=== PATIENT | male | born 1980 | race Caucasian/White ===

== ENCOUNTER 2022-07-14 15:29 | Emergency (ER) | payer BC, OTHER ==
[~2022-07-14] VITALS: Ht 177.8 cm; Wt 84.8 kg
[~2022-07-14 15:29] MED LIST: ANTABUSE250 MG PO; IRON325 MG PO; NORCO 5-325 TA1 EACH PO; PRENATABS RX T1 EACH PO; TRAZODONE HCL50 MG PO
[2022-07-14] MEDS ORDERED: NAPROSYN500 MG PO (16:18)
[2022-07-14] MEDS ORDERED: VISTARIL25 MG PO (16:18)
--- NOTE | 2022-07-14 21:55 | EKG ---
[facility] [address] [facility] [place], [place] [address] Signed Normal sinus rhythm Normal ECG No previous ECGs available Confirmed by JAVON MARTIN MD ([id number]) on 07/14/2022 9:55:33 PM Electronically Signed By: JAVON MARTIN MD 07/14/225 PATIENT NAME: AMBREEN MARLOW Electrocardiogram DATE OF : 76 PHYSICIAN: JAVON MARTIN MD REPORT #: [id number] REPORT IS CONFIDENTIAL AND NOT TO BE RELEASED WITHOUT AUTHORIZATION
== END 2022-07-14 16:54 | disposition home or self-care (01) ==
LOC: ED 15:29
DX: R09.1 Pleurisy (principal); G47.00 Insomnia, unspecified; Z20.822 Contact with and (suspected) exposure to COVID-19
CPT/HCPCS: 36415; 71045; 80053; 83735; 84484; 85025; 85060; 93005; 93010; 99285-25; C9803

== ENCOUNTER 2023-06-27 12:41 | Observation (INO) | payer BC, OTHER ==
[~2023-06-27] VITALS: Ht 177.8 cm; Wt 87.0 kg
[~2023-06-27 12:41] MED LIST changes: +NAPROSYN500 MG PO; +VISTARIL25 MG PO
[2023-06-27 15:18] LABS: BASOPHILS 0.1 % (0-2); EOSINOPHILS 0.4 % (0-6); HEMATOCRIT 38.4 % (35.0-50.0); HEMOGLOBIN 12.3 g/dL (12.0-18.0); MCH 19.4 (27-36); MCHC 32.1 g/dl (30-36); MCV 60.5 fl (81-99); MONOCYTES 4.4 % (0-12); NEUTROPHILS 91.1 % (39-80); PLATELET COUNT 305 K/uL (140-440); RBC 6.36 M/ul (4.3-5.7); RDW 16.3 (10.5-15.0)
[2023-06-27 15:33] LABS: ALBUMIN 4.5 g/dL (3.4-5.0); ALBUMIN/GLOBULIN RATIO 1.13 (1.1-2.4); BILIRUBIN, TOTAL 0.6 ng/dL (0.2-1.0); BUN/CREATININE RATIO 6.18 (6.0-28.6); CALCIUM 9.3 mg/dL (8.5-10.1); CREATININE, SERUM 0.97 mg/dL (0.70-1.30); PROTEIN, TOTAL 8.5 g/dL (6.4-8.2)
[2023-06-27 16:31] LABS: BILIRUBIN, URINE NEGATIVE (negative); BLOOD/HGB, URINE TRACE-I (Negative); KETONE, URINE NEGATIVE (Negative); LEUK ESTERASE, URINE NEGATIVE (negative); NITRITE, URINE NEGATIVE (negative)
[2023-06-27 16:38] LABS: BACTERIA, URINE RARE /hpf (negative); CASTS, URINE NONE SEEN \\lpf; COLLECTION TYPE, URINE CLEAN CATCH; CRYSTALS, URINE AMORPHOUS PHOSPH 4+ (0-1+); EPITHELIAL CELLS, URINE 0 /lpf (0-1+); RED BLOOD CELLS, URINE 0-1 /hpf (0-5); REFLEX CULTURE, URINE No (No); WHITE BLOOD CELLS, URINE 0-1 /HPF (0-5)
[2023-06-27 19:35] LABS: INFLUENZA B NAA NEGATIVE (NEGATIVE); RESPIRATORY SYNCYTIAL VIR NAA NEGATIVE (NEGATIVE)
[2023-06-27 19:58] VITALS: BP 155/100
[2023-06-28] VITALS (8 sets, daily range): BP systolic 123–147; BP diastolic 64–94
[2023-06-28 05:38] LABS: BASOPHILS 0.5 % (0-2); EOSINOPHILS 0.6 % (0-6); HEMATOCRIT 33.9 % (35.0-50.0); LYMPHOCYTES 12.2 % (24-44); MCH 19.6 (27-36); MCHC 32.3 g/dl (30-36); MCV 60.7 fl (81-99); NEUTROPHILS 76.7 % (39-80); PLATELET COUNT 270 K/uL (140-440); RBC 5.58 M/ul (4.3-5.7); RDW 16.2 (10.5-15.0)
[2023-06-28 06:02] LABS: ALBUMIN 3.4 g/dL (3.4-5.0); ANION GAP 11.7 (7-21); BILIRUBIN, TOTAL 0.7 ng/dL (0.2-1.0); BUN/CREATININE RATIO 8.79 (6.0-28.6); CALCIUM 8.4 mg/dL (8.5-10.1); CREATININE, SERUM 0.91 mg/dL (0.70-1.30); POTASSIUM 3.7 mmol/L (3.5-5.1); PROTEIN, TOTAL 6.8 g/dL (6.4-8.2)
[2023-06-28] MEDS ORDERED: NAPROSYN500 MG PO (10:14)
[2023-06-28] MEDS ORDERED: ZZZQUIL25 MG PO (12:48)
[2023-06-29 03:09] VITALS: BP 128/84
[2023-06-29 05:30] LABS: BASOPHILS 0.9 % (0-2); HEMATOCRIT 31.5 % (35.0-50.0); LYMPHOCYTES 7.5 % (24-44); MCH 19.4 (27-36); MCHC 31.8 g/dl (30-36); MCV 60.9 fl (81-99); NEUTROPHILS 85.6 % (39-80); PLATELET COUNT 261 K/uL (140-440); RBC 5.17 M/ul (4.3-5.7); RDW 16.6 (10.5-15.0)
[2023-06-29 05:53] LABS: ALBUMIN 3.1 g/dL (3.4-5.0); ALBUMIN/GLOBULIN RATIO 0.89 (1.1-2.4); ANION GAP 13.2 (7-21); BILIRUBIN, TOTAL 0.4 ng/dL (0.2-1.0); BUN/CREATININE RATIO 8.51 (6.0-28.6); CALCIUM 8.2 mg/dL (8.5-10.1); CREATININE, SERUM 0.94 mg/dL (0.70-1.30); POTASSIUM 4.2 mmol/L (3.5-5.1); PROTEIN, TOTAL 6.6 g/dL (6.4-8.2)
[2023-06-29 06:12] VITALS: BP 138/87
[2023-06-29 09:27] VITALS: BP 127/80
[2023-06-29] MEDS ORDERED: OXYCODONE HCL5 MG PO (14:26)
[2023-06-29] MEDS ORDERED: MOTRIN IB200 MG PO (14:26)
[2023-06-29] MEDS ORDERED: ACETAMINOPHEN500 MG PO (14:26)
--- NOTE | 2023-06-30 10:51 | HP ---
[facility] [address] [facility] [place], [place] [address] Signed ADMISSION DATE: 06/27/2023 REASON FOR ADMISSION: Acute calculous cholecystitis. HISTORY OF PRESENT ILLNESS: This 42-year-old man works for the [employer] and is accompanied by his daughter and niece. He has a girlfriend, who is not here. The patient began having pain early this morning and thought he would "tough it out" until noon, at which point he was quite uncomfortable. He presented to the emergency room at approximately 12:49 p.m. He was evaluated by Dr. Garcia and was found to have tenderness in the right upper abdomen. His liver enzymes were normal and with less suspicion for possible biliary disease. A CT scan was performed. This showed marked inflammation and edema of the gallbladder itself. No radiopaque stones were noted, however, my review does show high probability of at least one stone in the neck of the gallbladder. The liver was normal as noted, as were both kidneys and the pancreas. His laboratory studies showed normal liver enzymes as previously noted. White count of 13.7, hematocrit of 38.4, and platelets of 305,000. Creatinine was normal at 0.97. Bilirubin was 0.6. Serology is negative for COVID disease or other respiratory viruses. Urinalysis was performed, which was essentially normal. The patient has no prior history of abdominal surgery and has no particular chronic medical problems. His only medications include Vistaril and Naprosyn. SOCIAL HISTORY: He works with [employer] and has worked in many capacities, including facilities management and so forth. He is accompanied by his daughter and his niece as previously noted. REVIEW OF SYSTEMS: He denies any shortness of breath or chest pain. He has had no dysphagia, dysuria. He denies any hematemesis or blood per rectum. PHYSICAL EXAMINATION: GENERAL: Pleasant man, who does not look systemically toxic. VITAL SIGNS: Current vital signs show temperature 97.8, pulse 101, blood pressure 155/100, O2 saturation 98% on room air. NECK: Shows no thyromegaly or cervical adenopathy. Trachea is midline. Electronically Signed By: MAITE WATTS MD 06/30/23 1051 PATIENT NAME: AMBREEN MARLOW HISTORY AND PHYSICAL DATE OF : [birth year] REPORT #: [id number] PHYSICIAN: MAITE WATTS MD PCP: [facility] REPORT IS CONFIDENTIAL AND NOT TO BE RELEASED WITHOUT AUTHORIZATION [facility] [address] [place], [place] [address] Signed CHEST: Clear. HEART: Regular without murmur. ABDOMEN: Nondistended and generally soft. There are no ascites. He has mild tenderness in the epigastric and right subcostal area. EXTREMITIES: Show no clubbing, cyanosis, or edema. LABORATORY DATA: Lab studies were as noted. CT scan is the only imaging study he has had and it was reviewed showing a distended edematous gallbladder. The patient has clinical evidence of acute cholecystitis. There is no evidence of radiopaque gallstones. No sign of appendicitis and no retroperitoneal abnormality particularly. ASSESSMENT AND PLAN: His clinical findings are completely consistent with acute cholecystitis, probably calculous, though that is uncertain. The utility of an ultrasound is relatively low under the circumstances, however, it may be beneficial to know if there are in fact stones and in particular if stones are noted in the common bile duct, though his liver enzymes are normal. For tonight, he will get intravenous fluid resuscitation, IV pain medication (already started on Zosyn), and we will consider for ultrasound tomorrow in the morning. Would recommend cholecystectomy tomorrow afternoon. Discussed with him the pathophysiology of biliary disease and recommendation of treatment to include laparoscopic cholecystectomy with cholangiogram, possible open procedure, including possible laparoscopic or open common bile duct exploration. The risk of bleeding, infection, bile duct injury, need for open procedure, and so forth were all reviewed in detail. He understands and wished to proceed. MD LALA Arora/MODL /[id number] Electronically Signed By: MAITE WATTS MD 06/30/23 1051 PATIENT NAME: AMBREEN MARLOW HISTORY AND PHYSICAL DATE OF : [birth year] REPORT #: [id number] PHYSICIAN: MAITE WATTS MD PCP: [facility] REPORT IS CONFIDENTIAL AND NOT TO BE RELEASED WITHOUT AUTHORIZATION [facility] [address] [facility] [place] [address] Signed cc: [facility] [place] Garcia Copies: [facility] GARCIA,COLTON ~ Electronically Signed By: MAITE WATTS MD 06/30/23 1051 PATIENT NAME: AMBREEN MARLOW HISTORY AND PHYSICAL DATE OF : [birth year] REPORT #: [id number] PHYSICIAN: MAITE WATTS MD PCP: [facility] REPORT IS CONFIDENTIAL AND NOT TO BE RELEASED WITHOUT AUTHORIZATION
--- NOTE | 2023-07-02 10:37 | PATH ---
[facility] [address] [place], [place] [address] Signed SPECIMEN(S): A GALLBLADDER AND CONTENTS SPECIMEN SOURCE: A. GALLBLADDER AND CONTENTS CLINICAL HISTORY: Acute cholecystitis FINAL PATHOLOGIC DIAGNOSIS: Gallbladder, cholecystectomy: - Acute cholecystitis superimposed on chronic cholecystitis with cholelithiasis. - Cholesterolosis is present. - Negative for dysplasia and malignancy. SDL MICROSCOPIC EXAMINATION: Histologic sections of all submitted blocks are examined by light microscopy. These findings, together with the gross examination, support the pathologic diagnosis. SDL GROSS DESCRIPTION: The specimen, labeled and designated "carson Coe," is received in formalin and consists of Specimen: Previously opened gallbladder. Dimensions: 10.5 x 4.0 cm. Serosa: Violaceous, smooth and focally congested. Cystic Duct: Inked, unobstructed. Calculi: To yellow gallstones within the container that measure 1.1 and 1.4 cm in diameter. Mucosa: [place] and velvety. Wall thickness: 0.6 cm. Lymph node: No pericystic lymph nodes are grossly identified. Additional: None. News Camera Operator sections are submitted in (A1). JS (under the direct supervision of a pathologist) The Gross Description was prepared using a voice recognition system. The report was reviewed for accuracy; however, sound-alike word errors, addition and/or deletions may occur. If there is any question about this report, please contact Client Services. PATIENT NAME: AMBREEN COE PATHOLOGY DATE OF : [birth year] REPORT #: [id number] PHYSICIAN: BHUPENDRA RODRIGUES PCP: [facility] REPORT IS CONFIDENTIAL AND NOT TO BE RELEASED WITHOUT AUTHORIZATION [facility] [address] [place], [place] [address] Signed ADDITIONAL NOTES: Immunohistochemical and/or in situ hybridization studies if performed in this case included appropriate positive controls that reacted as expected. This test was developed and its performance characteristics determined by [facility]. It has not been cleared or approved by the U.S. Food and Drug Administration. The FDA has determined that such clearance or approval is not necessary. This test is used for clinical purposes. It should not be regarded as investigational or for research. [facility] is certified under the Clinical Laboratory Improvement Amendments of 1988 (CLIA) as qualified to perform high complexity clinical laboratory testing. PERFORMING LABORATORY: Technical component was performed by [facility], [address] [place] [id number] (CLIA# [id number]). Professional interpretation was performed by [facility] - [facility], [address] [place] [id number] (CLIA#: [id number]). Diagnostician: Yocasta Barcenas MD Pathologist Electronically Signed 07/02/2023 Copies: ~ PATIENT NAME: AMBREEN COE PATHOLOGY DATE OF : [birth year] REPORT #: [id number] PHYSICIAN: BHUPENDRA RODRIGUES PCP: [facility] REPORT IS CONFIDENTIAL AND NOT TO BE RELEASED WITHOUT AUTHORIZATION
--- NOTE | 2023-07-02 11:19 | OR ---
[facility] [address] [place], [place] [address] Signed DATE OF OPERATION: 06/28/2023 SURGEON: Maite Watts MD PREOPERATIVE DIAGNOSIS: Acute calculous cholecystitis with massively dilated gallbladder. POSTOPERATIVE DIAGNOSES: Acute calculous cholecystitis with massively dilated gallbladder, severe cholecystitis. PROCEDURE: Laparoscopic cholecystectomy with attempted (failed) intraoperative cholangiogram, prolonged, complicated, difficult. ANESTHESIA: General endotracheal, Abena Danitza, YOUTH NUTRITIONAL MONITOR, and local 10 mL of 0.25% Marcaine with epinephrine. INDICATION: This 42-year-old Haitian man was admitted yesterday following evaluation in the emergency room by Dr. Garcia and Dr. Tovar, with where he was found to have right upper abdominal pain. A CT scan was performed, which showed a massively dilated gallbladder. Cholecystic edema. No stones were seen on the CT scan. Given the clinical findings and despite normal liver enzymes, he is admitted for further evaluation and care. He has been fluid resuscitated, given intravenous antibiotics, and did undergo a gallbladder ultrasound, which confirmed at least two stones, one of them would definitely into the infundibulum. He is here to undergo cholecystectomy. He understand the risk of bleeding, infection, bile duct injury, need for open procedure, and other unforeseen complications. Understanding this, he wished to proceed. FINDINGS: Gallbladder was quite massively dilated. Decompression was undertaken. There was a very friable and thin-walled gallbladder concurrent to his significant inflammation. Dense omental adhesions to the gallbladder were noted as well. The omental adhesions were the most friable and easily made to bleed. In aggregate, approximately 100 mL of blood was lost probably in mobilizing the omentum from the gallbladder. Additionally, the friability of the gallbladder and the cystic duct noted distraction of the gallbladder from the cystic duct upon retraction following choledochotomy and therefore Electronically Signed By: MAITE WATTS MD 07/02/23 1119 PATIENT NAME: AMBREEN MARLOW OPERATIVE REPORT DATE OF : [birth year] REPORT #: [id number] PHYSICIAN: MAITE WATTS MD PCP: [facility] REPORT IS CONFIDENTIAL AND NOT TO BE RELEASED WITHOUT AUTHORIZATION [facility] [address] [place], [place] [address] Signed safe cholangiogram could not be performed. The cystic duct was well identified and triply clipped, however. At conclusion, a drain was placed, but there was no sign of ongoing bleeding and certainly no bile leak. DESCRIPTION OF PROCEDURE: The patient was brought to the operating room, given a general endotracheal anesthetic. Preoperative antibiotic Ancef had been given. Sequential compression device stockings were used and heparin subcutaneously administered. The patient was noted to have somewhat difficult intubation with an anterior airway and noted for overbite of teeth. He was intubated successfully and without complication, however. After satisfactory general endotracheal anesthesia, the abdomen was prepared with chlorhexidine solution and draped sterilely. Infraumbilical incision was made and using an open Sakshi cannula technique, the abdomen was entered. Intra-abdominal inspection showed no sign of ascites or carcinomatosis, but quite massively dilated and acutely inflamed gallbladder. There was no evidence of significant fatty liver. Three additional trocars were placed in usual configuration in the subxiphoid, right midclavicular, and right anterior axillary line. Gallbladder was elevated cephalad, but could not be easily grasped and on that basis was decompressed with a needle trocar device. The puncture site was secured with the grasper and later Endoloop. Elevation of the friable gallbladder was undertaken and impressively dense omental adhesions to the undersurface of the gallbladder were identified. These were taken down with blunt dissection. Friability of the omental adhesions had caused some persistent oozing of blood. These were secured with clips as necessary. Further dissection towards the infundibulum did not show free space, indeed the omentum was impressively "socked in" to the infundibulum. Various maneuvers were made to contain dissection along the gallbladder wall. Ultimately the cystic duct was identified, as was the infundibulum and appeared to be a very impacted stone at the infundibulum. Various manipulations were required to ultimately identify well the infundibulum and the cystic duct. Once fully identified, a clip was applied across gallbladder cystic duct junction, milked in the large stone back into the gallbladder. A transverse choledochotomy was made in the cystic duct, egress of clear bile was noted without stone debris or stones proper. Upon gentle retraction of the cystic duct, however, it distracted and the cystic duct thus was not in continuity with the infundibulum anymore. Additional 5 mm port was placed in the epigastric area to gently elevate the cystic duct remnant, which showed egress of clear bile. Minimal, but persistent dissection was undertaken on the cystic duct remnant. Although cholangiogram was a consideration, given the dense inflammatory changes in the area, further dissection to grasp the cystic duct remnant and provide cholangiogram was deemed too hazardous with relatively high risk of further distracting the cystic duct remnant and therefore once adequate, the cystic duct remnant was identified, the cystic duct was triply clipped. Irrigation was undertaken. There was Electronically Signed By: MAITE WATTS MD 07/02/23 1119 PATIENT NAME: AMBREEN MARLOW OPERATIVE REPORT DATE OF : 76 REPORT #: [id number] PHYSICIAN: MAITE WATTS MD PCP: [facility] REPORT IS CONFIDENTIAL AND NOT TO BE RELEASED WITHOUT AUTHORIZATION [facility] [address] [place], [place] [address] Signed no sign of bile leak. The gallbladder was then dissected free in a retrograde fashion using electrocautery. It was surprising how vascularized the omentum was in relation to the gallbladder. Various areas required clipping, cautery, and so forth to maintain hemostasis. Ultimately, the gallbladder was completely freed from the liver bed, placed in an Endobag, and extracted through the infraumbilical port site. Found were two 2 cm mulberry yellow gallstones, one of them densely wedged into the infundibulum of the gallbladder itself. There was no sign of neoplasm of mucosa. There was no other stone debris identified. Irrigation was undertaken in subhepatic space. Bleeding was minimal from the area of dissection, but the omentum did have venous oozing so forth and clips were applied to those areas as appropriate. Copious irrigation was undertaken ultimately clearing the perihepatic and infrahepatic areas. Reinspection of subhepatic space showed no sign of bleeding or bile leak or other problem. Aerosolized fibrin glue (Tisseel) was applied to the gallbladder fossa in the periportal structures as well as over the surface of the omentum now that hemostasis was improved. Through the right-sided 5 mm trocar site, a 5 mm subhepatic drain was placed and secured the skin with nylon suture. Very minimal drainage came out thereafter. The trocars were then removed under direct visualization showing no sign of bleeding. The infraumbilical fascial incision was reapproximated with interrupted 0 Vicryl suture. 10 mL of 0.25% Marcaine with epinephrine was injected locally. The skin was closed with interrupted 3-0 Vicryl. Steri-Strips were applied. The patient was ultimately extubated without complication, taken to the recovery room in good condition, having suffered no complication. Sponge, needle, and instrument counts reported as correct x3. MD LALA Arora/JIML /[id number] cc: Dr. Yoni Garcia Electronically Signed By: MAITE WATTS MD 07/02/23 1119 PATIENT NAME: AMBREEN MARLOW OPERATIVE REPORT DATE OF : 76 REPORT #: [id number] PHYSICIAN: MAITE WATTS MD PCP: [facility] REPORT IS CONFIDENTIAL AND NOT TO BE RELEASED WITHOUT AUTHORIZATION [facility] [address] [facility] [place], [place] [address] Signed Copies: MAXINE GARCIA ~ Electronically Signed By: MAITE WATTS MD 07/02/23 1119 PATIENT NAME: AMBREEN MARLOW OPERATIVE REPORT DATE OF : [birth year] REPORT #: [id number] PHYSICIAN: MAITE WATTS MD PCP: [facility] REPORT IS CONFIDENTIAL AND NOT TO BE RELEASED WITHOUT AUTHORIZATION
--- NOTE | 2023-07-02 11:20 | DS ---
[facility] [address] [place], [place] [address] Signed ADMISSION DATE: 06/27/2023 DISCHARGE DATE: 06/29/2023 REASON FOR ADMISSION: Acute cholecystitis. HISTORY: This 43-year-old [place] man presented to the emergency room with complaints of upper abdominal pain. He was evaluated by Dr. Garcia and found to have tenderness in the right upper abdomen. His liver enzymes are normal, and a CT scan was performed that showed marked inflammation and edema of the gallbladder itself. There was no evidence on CT scan of radiopaque stones. Liver enzymes were normal. White count was 13.7, hematocrit 38.4. He is admitted for further evaluation and care for probable acute cholecystitis. PERTINENT PHYSICAL EXAMINATION: GENERAL: Showed a pleasant [place] man, who did not look to be systemically toxic. CHEST: Clear. HEART: Regular without murmur. ABDOMEN: Nondistended and generally soft. There is no ascites. He had mild tenderness in the epigastric and right subcostal area. HOSPITAL COURSE: He was admitted initially on Zosyn antibiotic. As he had not had an actual ultrasound and the CT scan did not demonstrate stones, but did show marked dilation and inflammation of the gallbladder, the gallbladder ultrasound was performed on the morning of operation, which indeed confirmed gallstones. He was taken to the operating room for acute calculous cholecystitis on that basis. He was found to have a markedly distended gallbladder. It was quite inflamed, though it was very thin and friable. Omental adhesions surrounding the gallbladder were impressive. Operation was somewhat prolonged, complicated and difficult on the basis of these findings. A cholangiogram was intended, but not able to be done as distraction of the gallbladder from the cystic duct was noted, a testimony to the friability of the soft tissues there. The cystic duct was well secured with three clips, however. A drain was placed as well. Fibrin glue (Tisseel) was applied to the area of omentum and hepatic fossa to additionally secure hemostasis. Postoperatively, he did quite well. The drain did show bloody drainage on the night of surgery, but only serosanguineous fluid the next day and it was able to be removed. There is certainly no bile leak. His liver enzymes were found to be normal as well. He is now tolerating a regular diet, ambulating well. He has no particular complaints. Electronically Signed By: MAITE WATTS MD 07/02/23 1120 PATIENT NAME: AMBREEN MARLOW DISCHARGE SUMMARY DATE OF : [birth year] REPORT #: [id number] PHYSICIAN: MAITE WATTS MD PCP: [facility] REPORT IS CONFIDENTIAL AND NOT TO BE RELEASED WITHOUT AUTHORIZATION [facility] [address] [place], [place] [address] Signed The drain has been removed. He will be discharged home anticipating follow up in a month or so. Postoperative instructions were given as to avoid lifting more than 20 pounds for the next two weeks. He will walk on a daily basis. He is permitted to shower tomorrow. DISCHARGE MEDICATIONS: Include: 1. Tylenol 1 g p.o. q.6 hours p.r.n. pain, #60. 2. Oxycodone 10 mg one p.o. q.6 hours p.r.n. pain, #10. 3. Motrin 600 mg p.o. q.6 hours p.r.n. pain. He will resume his usual medication of Benadryl 25 mg tablet at bedtime as needed for sleep. DISCHARGE DIAGNOSIS: 1. Severe acute calculus cholecystitis with marked distention of gallbladder, status post laparoscopic cholecystectomy with attempted (failed) intraoperative cholangiogram (prolonged, complicated, difficult). 2. Seasonal allergy. FOLLOW UP: He will see me in the office in about four weeks. He is free to return to work at any time with restriction of lift no more than 20 pounds. He is free without any restrictions to return in two weeks on July 13, 2023. MD LALA Arora/MODL /[id number] cc: [facility] Copies: [facility] Electronically Signed By: MATIE WATTS MD 07/02/23 1120 PATIENT NAME: AMBREEN MARLOW DISCHARGE SUMMARY DATE OF : 76 REPORT #: [id number] PHYSICIAN: MAITE WATTS MD PCP: [facility] REPORT IS CONFIDENTIAL AND NOT TO BE RELEASED WITHOUT AUTHORIZATION [address] [address] Signed MAXINE GARCIA ~ Electronically Signed By: MAITE WATTS MD 07/02/23 1120 PATIENT NAME: AMBREEN MARLOW DISCHARGE SUMMARY DATE OF : [birth year] REPORT #: [id number] PHYSICIAN: MAITE WATTS MD PCP: [facility] REPORT IS CONFIDENTIAL AND NOT TO BE RELEASED WITHOUT AUTHORIZATION
== END 2023-06-29 15:04 | disposition home or self-care (01) ==
LOC: ED 12:41 → MS 12:42 → ED 18:23 → MS 18:23
PROVIDERS: Internal Medicine; ADMIT Surgery; ATTEND Surgery
PROC: 0FT44ZZ Resection of Gallbladder, Percutaneous Endoscopic Approach (ICD-10-PCS; principal; 2023-06-27)
DX: K80.12 Calculus of gallbladder with acute and chronic cholecystitis without obstruction (principal); Z20.822 Contact with and (suspected) exposure to COVID-19
CPT/HCPCS: 00790; 36415; 74177; 76705; 80053; 81001; 83690; 85025; 85060; 87502; 96375; 96376; 99285-25; A9270; C9803; J0131; J0330; J0690; J1100; J1170; J1644; J1885; J2250; J2270; J2405; J2543; J2704; J2765; J3010; J3490; J7030; J7121; U0002

== ENCOUNTER 2023-09-17 07:05 | Day surgery (SDC) | payer BC, OTHER ==
[~2023-09-17] VITALS: Ht 180.3 cm; Wt 88.6 kg
[~2023-09-17 07:05] MED LIST changes: +ACETAMINOPHEN500 MG PO; +MOTRIN IB200 MG PO; +OXYCODONE HCL5 MG PO; +ZZZQUIL25 MG PO
[2023-09-17 07:38] VITALS: BP 142/87
--- NOTE | 2023-09-17 09:23 | NUR ---
09/17/23 0923 Elaine Garcia PATIENT MINIMALLY RESPONSIVE TO MY VOICE UPON ARRIVAL TO PACU - HE DOES LIFT HIS EYE LIDS AND FALLS QUICKLY BACK TO RESTING QUIETLY, WITH HIS EYES CLOSED.
[2023-09-17 09:38] VITALS: BP 117/87
--- NOTE | 2023-09-17 16:28 | OR ---
[facility] [address] [place], [place] [address] Signed DATE OF OPERATION: 09/17/2023 SURGEON: Maite Watts MD PREOPERATIVE DIAGNOSIS: Colon screening. POSTOPERATIVE DIAGNOSIS: Hyperplastic mucosa of ileocecal valve (biopsied). PROCEDURE: Total colonoscopy to cecum with biopsy of ileocecal valve. ANESTHESIA: Intravenous sedation fentanyl 100 mcg, versed 7 mg. INDICATION: This 43-year-old [place] man is a patient of CANDI Saenz, [facility]. He underwent cholecystectomy, having presented with acute calculous cholecystitis on June 28, 2023. He has recovered well from that. Given his age and so fourth, he is recommended for screening colonoscopy. He has no symptoms of bleeding, diarrhea or constipation. No family history of colon cancer. He is admitted to undergo colonoscopy at this time. He understands the risk of bleeding, infection, and perforation. FINDINGS: The prep was good. Complete colonoscopy was undertaken to the cecum. There appeared to be hyperplasia of the ileocecal valve area and not strictly adenomatous change despite use of narrow-band imaging to more fully define this. On that basis, biopsies were obtained. The remaining colon was normal. PROCEDURE IN DETAIL: The patient was brought to the endoscopy suite and placed in lateral decubitus position, given intravenous sedation upon slurred speech and nystagmus. Digital rectal examination was normal. An Olympus video colonoscope was passed in the rectum and manipulated throughout the colon, ultimately intubating the cecum appeared to be hyperplastic changes of the ileocecal valve. Biopsies were obtained. The scope was withdrawn and examination throughout showed no sign of other abnormality. Retroflexed view of the rectum was normal. Scope was removed. The patient was taken to the recovery room in good Electronically Signed By: MAITE WATTS MD 09/17/23 1628 PATIENT NAME: AMBREEN MARLOW OPERATIVE REPORT DATE OF : 76 REPORT #: [id number] PHYSICIAN: MAITE WATTS MD PCP: TALISHA CRAIG REPORT IS CONFIDENTIAL AND NOT TO BE RELEASED WITHOUT AUTHORIZATION [facility] [address] [facility], [place] [address] Signed condition. CONCLUDING DIAGNOSIS: Essentially normal colon, possible hyperplasia of the ileocecal valve. PLAN: We would recommend repeat colonoscopy in 10 years, sooner if symptoms should occur. He will return to the ongoing care of CANDI Saenz. Maite Watts MD /MODL /[id number] cc: CANDI Saenz [facility] Copies: ~ Electronically Signed By: MAITE WATTS MD 09/17/23 1628 PATIENT NAME: AMBREEN MARLOW OPERATIVE REPORT DATE OF : 76 REPORT #: [id number] PHYSICIAN: MAITE WATTS MD PCP: TALISHA CRAIG REPORT IS CONFIDENTIAL AND NOT TO BE RELEASED WITHOUT AUTHORIZATION
--- NOTE | 2023-09-22 07:20 | PATH ---
[facility] [address] [place], [place] [address] Signed SPECIMEN(S): A ILEOCECAL VALVE BIOPSY SPECIMEN SOURCE: A. ILEOCECAL VALVE BIOPSY CLINICAL HISTORY: Screening colonoscopy FINAL PATHOLOGIC DIAGNOSIS: Ileocecal valve, biopsy: - Tubular adenoma (multiple fragments). JVR:cml MICROSCOPIC EXAMINATION: Histologic sections of all submitted blocks are examined by light microscopy. These findings, together with the gross examination, support the pathologic diagnosis. GROSS DESCRIPTION: The specimen, labeled and designated "Saravanan ileocecal valve biopsy," is received in formalin and consists of three de [place] santos soft tissue fragments, ranging from 0.1-0.3 cm. Entirely submitted in (A1). VB (under the direct supervision of a pathologist) The Gross Description was prepared using a voice recognition system. The report was reviewed for accuracy; however, sound-alike word errors, addition and/or deletions may occur. If there is any question about this report, please contact Client Services. ADDITIONAL NOTES: Immunohistochemical and/or in situ hybridization studies if performed in this case included appropriate positive controls that reacted as expected. This test was developed and its performance characteristics determined by [facility]. It has not been cleared or approved by the U.S. Food and Drug Administration. The FDA has determined that such clearance or approval is not necessary. This test is used for clinical purposes. It should not be regarded as investigational or for research. [facility] is certified under the Clinical Laboratory Improvement Amendments of 1988 (CLIA) as qualified to perform high complexity clinical laboratory testing. PATIENT NAME: AMBREEN MARLOW PATHOLOGY DATE OF : 76 REPORT #: [id number] PHYSICIAN: BHUPENDRA RODRIGUES PCP: TALISHA CRAIG REPORT IS CONFIDENTIAL AND NOT TO BE RELEASED WITHOUT AUTHORIZATION [address] [place], [place] [address] Signed PERFORMING LABORATORY: Technical component was performed by [facility], [address] [place] [address] (CLIA# [id number]). Professional interpretation was performed by [facility] [address] [address] (CLIA#: [id number]). Diagnostician: Wolfgang Herman MD Pathologist Electronically Signed 09/21/2023 Copies: ~ PATIENT NAME: AMBREEN MARLOW PATHOLOGY DATE OF : 76 REPORT #: [id number] PHYSICIAN: BHUPENDRA RODRIGUES PCP: TALISHA CRAIG REPORT IS CONFIDENTIAL AND NOT TO BE RELEASED WITHOUT AUTHORIZATION
== END 2023-09-17 09:50 | disposition home or self-care (01) ==
LOC: DS 07:05 → OPS 07:05 → DS 08:30 → OPS 09:50
PROVIDERS: ATTEND Surgery
PROC: 0DBC8ZX Excision of Ileocecal Valve, Via Natural or Artificial Opening Endoscopic, Diagnostic (ICD-10-PCS; principal; 2023-09-17 08:30)
DX: Z12.11 Encounter for screening for malignant neoplasm of colon (principal); D12.0 Benign neoplasm of cecum
CPT/HCPCS: 99153; G0500; J2250; J3010